=== PATIENT | male | born 1950 | race Caucasian/White ===

== ENCOUNTER 2020-11-18 09:55 | Outpatient (REF) | payer SELFPAY ==
[2020-11-18 11:08] LABS: Vitamin D 25-OH Total 34.6 ng/mL (>30)
== END 2020-11-18 09:56 | disposition home or self-care (01) ==
LOC: HO.LNC 09:55
PROVIDERS: Visit Provider Pathology Anatomic Pathology & Clinical Pathology
DX: R79.89 Other specified abnormal findings of blood chemistry (principal)
CPT/HCPCS: 82306

== ENCOUNTER → 2021-01-10 08:29 | Outpatient (BNVA) | payer SELFPAY | PROVIDERS: PCP Internal Medicine; Visit Provider Physician Assistant | DX: Z02.79 Encounter for issue of other medical certificate (principal) ==

== ENCOUNTER → 2021-12-12 14:41 | Outpatient (REF) | payer MEDICARE, SELFPAY | LOC: HO.SL 14:41 | PROVIDERS: PCP Family Medicine; Visit Provider Internal Medicine Pulmonary Disease | DX: G47.33 Obstructive sleep apnea (adult) (pediatric) (principal) | CPT/HCPCS: 95806 ==

== ENCOUNTER → 2022-01-06 08:27 | Outpatient (BNVA) | payer SELFPAY | PROVIDERS: PCP Family Medicine; Visit Provider Physician Assistant | DX: Z02.79 Encounter for issue of other medical certificate (principal) ==